=== PATIENT | male | born 1945 | race Caucasian/White ===

== ENCOUNTER 2021-04-20 18:47 | Emergency (ER) | payer BC, MEDICARE ==
[2021-04-20 19:01] VITALS: BP 147/96
[2021-04-20] MEDS ORDERED: BUFFERED LIDOCAINE 10 ML SYRINGE SUBQ STA (19:21)
[2021-04-20] MEDS ORDERED: BACITRACIN ZINC OINT 1 PACKET TOP STA (19:22)
--- NOTE | 2021-04-20 19:39 | ED Physician Documentation ---
History of Present Illness - Stated complaint Stated Complaint: HEAD LAC - Chief complaint Chief Complaint: Laceration - Additonal information Additional information: 76-year-old male presents emergency department for evaluation of a 1.5 cm l aceration above her left eyebrow sustained when he accidentally hit his head on the open car door when working in the garage in the dark. No loss of consciousness. Not anticoagulated. Last tetanus within 5 years Review of Systems Constitutional: reports: Reviewed and negative Nose: reports: Reviewed and negative Throat: reports: Reviewed and negative Cardiac: reports: Reviewed and negative Skin: reports: Laceration (s) PD PAST MEDICAL HISTORY - Past Medical History Past Medical History: Yes Cardiovascular: Hypertension Respiratory: Asthma Endocrine/Autoimmune: HyPOthyroidism : Benign prostate hypertrophy - Past Surgical History Past Surgical History: Yes - Present Medications Home Medications: Ambulatory Orders Medication Instructions Recorded Confirmed Amlodipine Besylate 2.5 mg PO DAILY 04/05/13 04/20/21 Levothyroxine [Synthroid] 112 mcg PO QDAC 10/29/14 04/20/21 Albuterol Sulf [Ventolin Hfa 1 puffs INH DAILY PRN 04/20/21 04/20/21 Inhaler] Atorvastatin [Lipitor] 10 mg PO DAILY 04/20/21 04/20/21 - Allergies Allergies/Adverse Reactions: Allergies Allergy/AdvReac Type Severity Reaction Status Date / Time cephalexin [Cephalexin] Allergy Itching Verified 04/20/21 18:51 Sulfa (Sulfonamide Allergy Rash Verified 04/20/21 18:51 Antibiotics) - Social History Does the pt smoke?: Yes Smoking Status: Current every day smoker Does the pt drink ETOH?: No Does the pt have substance abuse?: No - Immunizations Immunizations are current?: Yes Immunizations: TDAP >10years/unknown - POLST Patient has POLST: No PD ED PE EXPANDED - HEENT HEENT: Other (1.5 cm vertical laceration just above the left medial eyebrow). No: Atraumatic Results - Vitals Vitals: Vital Signs - 24 hr 04/20/21 18:54 Temperature 37.0 C Heart Rate 54 L Respiratory 18 Rate Blood Pressure 147/96 H O2 Saturation 99 Oxygen O2 Source Room air Procedures - Laceration (location) Eyebrow left Length in cm: 1.5 Wound type: Linear, Into subcut fat Neurovascular status: Sensory intact Anesthesia: Lidocaine 1% Wound preparation: Chlorhexadine, Irrigated copiously NS Skin layer closure: Interrupted, Size #-0 - enter number (4), Sutures - enter # (4) Other: Patient tolerated well, No complications, Tetanus UTD PD MEDICAL DECISION MAKING - ED course Complexity details: reviewed results, re-evaluated patient, d/w patient ED course: 76-year-old male with a laceration above his left medial eyebrow. I offered the option of glue versus Suture and the patient requested his sutures he feels it would heal quicker. 4 sutures were placed. Routine wound care and emergent return precautions discussed. Tetanus is up-to-date Departure - Departure Disposition: 01 Home, Self Care Clinical Impression: Laceration of left eyebrow Qualifiers: Encounter type: initial encounter Qualified Code(s): S01.112A - Laceration without foreign body of left eyelid and periocular area, initial encounter Condition: Stable Record reviewed to determine appropriate education?: Yes Instructions: ED Laceration All Comments: Aron it was a pleasure meeting you today. Your suture(s) should be removed in 5-7 days. In 24 hours you may remove the dressing wash gently with warm soap and water, apply any antibiotic ointment and a simple bandage. Your tetanus is up-to-date. Please attempt to keep your wound clean and dry. Return to the emergency department if you have any concerns of infection such as redness, fevers milky drainage increased pain.
== END 2021-04-20 19:45 | disposition home or self-care (01) ==
LOC: ED 18:47
DX: S01.112A Laceration without foreign body of left eyelid and periocular area, initial encounter (principal); W22.8XXA Striking against or struck by other objects, initial encounter; Y93.89 Activity, other specified; Y92.008 Other place in unspecified non-institutional (private) residence as the place of occurrence of the external cause; I10 Essential (primary) hypertension; F17.200 Nicotine dependence, unspecified, uncomplicated
CPT/HCPCS: 12011; 99281; A9270

== ENCOUNTER 2021-08-13 05:27 | Outpatient (CLI) | payer MEDICARE | END 2021-08-13 05:28 | disposition critical access hospital (66) | LOC: EMS 05:27 | DX: R07.9 Chest pain, unspecified (principal); R00.2 Palpitations; R10.13 Epigastric pain | CPT/HCPCS: A0425; A0427 ==

== ENCOUNTER 2021-08-13 06:11 | Emergency (ER) | payer MEDICARE ==
--- NOTE | 2021-08-13 06:30 | ED Physician Documentation ---
PD HPI CHEST PAIN - Stated complaint Stated Complaint: CP - Chief complaint Chief Complaint: Cardiac - History obtained from History obtained from: Patient - History of Present Illness Timing - onset: Enter time (399), Today Timing - onset during: Sleep Timing - duration: Minutes (20) Timing - details: Abrupt onset, Now resolved Pain level max: 8 Pain level now: 0 Quality: Pressure, Throbbing Location: Substernal, Left chest Radiation: Neck Improved by: Rest Associated symptoms: Palpitations. No: Shortness of air, Diaphoresis, Nausea, Vomiting, Feeling faint / dizzy, General Weakness, Cough Similar symptoms before: Has not had sx before Recently seen: Not recently seen - Additional information Additional information: 76-year-old male with a history of hypertension was asleep this morning having a dream when he awoke from the dream he felt his heart thumping quite hard and radiating into his neck. This lasted approximately 20 minutes. Patient eventually called the ambulance. He has had resolution of his symptoms. He has not had the symptoms specifically previously. He has had some chest pain he has been evaluated by [facility] 1 point but has not had a stress test. He does have a family history of coronary disease. Review of Systems Constitutional: denies: Fever Ears: denies: Loss of hearing, Ear pain Nose: denies: Congestion Throat: denies: Sore throat Cardiac: reports: Chest pain / pressure, Palpitations. denies: Pedal edema, Calf pain Respiratory: denies: Dyspnea, Cough GI: denies: Vomiting, Diarrhea : denies: Dysuria, Frequency PD PAST MEDICAL HISTORY - Past Medical History Past Medical History: Yes Cardiovascular: Hypertension Respiratory: Asthma Endocrine/Autoimmune: HyPOthyroidism : Benign prostate hypertrophy - Past Surgical History Past Surgical History: Yes - Present Medications Home Medications: Ambulatory Orders Medication Instructions Recorded Confirmed Amlodipine Besylate 2.5 mg PO DAILY 04/05/13 04/20/21 Levothyroxine [Synthroid] 112 mcg PO QDAC 10/29/14 04/20/21 Albuterol Sulf [Ventolin Hfa 1 puffs INH DAILY PRN 04/20/21 04/20/21 Inhaler] Atorvastatin [Lipitor] 10 mg PO DAILY 04/20/21 04/20/21 - Allergies Allergies/Adverse Reactions: Allergies Allergy/AdvReac Type Severity Reaction Status Date / Time cephalexin [Cephalexin] Allergy Itching Verified 08/13/21 06:21 Sulfa (Sulfonamide Allergy Rash Verified 08/13/21 06:21 Antibiotics) - Social History Does the pt smoke?: Yes Smoking Status: Current every day smoker Does the pt drink ETOH?: No Does the pt have substance abuse?: No - Immunizations Immunizations are current?: Yes Immunizations: TDAP >10years/unknown - POLST Patient has POLST: No PD ED PE NORMAL - Vitals Vital signs reviewed: Yes (hypertensive ) - General General: No acute distress, Well developed/nourished - HEENT HEENT: Atraumatic, PERRL, EOMI - Neck Neck: Supple, no meningeal sign, No bony TTP - Cardiac Cardiac: RRR, No murmur - Respiratory Respiratory: No respiratory distress, Clear bilaterally - Abdomen Abdomen: Soft, Non tender - Back Back: No CVA TTP, No spinal TTP - Derm Derm: Normal color, Warm and dry, No rash - Extremities Extremities: No deformity, No edema - Neuro Neuro: Alert and oriented X 3, 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 ) Computer interpretation: Agree with computer - Labs Labs: Laboratory Tests 08/13/21 08/13/21 08/13/21 06:36 06:36 06:36 WBC 5.3 RBC 5.24 Hgb 15.6 Hct 48.5 MCV 92.6 MCH 29.8 MCHC 32.2 RDW 13.4 Plt Count 276 MPV 8.5 Neut # (Auto) 2.6 Lymph # (Auto) 1.9 Stokes # (Auto) 0.5 Eos # (Auto) 0.3 Baso # (Auto) 0.1 Absolute Nucleated RBC 0.00 Nucleated RBC % 0.0 D-Dimer Sodium 140 Potassium 4.1 Chloride 104 Carbon Dioxide 27 Anion Gap 9.0 BUN 18 Creatinine 1.0 Estimated GFR (MDRD) 73 L Glucose 99 Calcium 9.8 Total Bilirubin 0.9 AST 23 ALT 18 Alkaline Phosphatase 61 Troponin I High Sens 8.1 Total Protein 6.5 L Albumin 3.8 Globulin 2.7 Albumin/Globulin Ratio 1.4 Lipase 33 08/13/21 06:46 WBC RBC Hgb Hct MCV MCH MCHC RDW Plt Count MPV Neut # (Auto) Lymph # (Auto) Stokes # (Auto) Eos # (Auto) Baso # (Auto) Absolute Nucleated RBC Nucleated RBC % D-Dimer 204.6 Sodium Potassium Chloride Carbon Dioxide Anion Gap BUN Creatinine Estimated GFR (MDRD) Glucose Calcium Total Bilirubin AST ALT Alkaline Phosphatase Troponin I High Sens Total Protein Albumin Globulin Albumin/Globulin Ratio Lipase - Rads (name of study) chest Radiology: Prelim report reviewed (Impression: 1. There is no active disease in the chest.), EMP read indepedently, See rad report PD MEDICAL DECISION MAKING - ED course Complexity details: reviewed old records, reviewed results, re-evaluated patient, considered differential, d/w patient ED course: 76 y/o male with thumping heart pain has an EKG that is unchanged but concerning for the ST elevation in V1 and V2. Trop is pending. blood pressure is elevated. The patient's troponin is normal chest x-ray is normal blood work is normal symptoms are resolved. The patient's description of his chest pain sounds like he may have had anxiety with pounding in his chest when he awoke from a dream. The patient acknowledges this. A repeat troponin is pending and at shift change care is turned over to Dr. Andrews pending results. Departure - Departure Clinical Impression: Atypical chest pain Condition: Stable Instructions: ED Chest Pain Atypical Unkn Cause Follow-Up: Ophelia Stevenson MD [Primary Care Provider] - Comments: Aron today we did not find evidence for heart attack with this episode of chest pain/chest thumping. Your blood pressure was elevated and I suspect this is all anxiety related and possibly to the dreams. You have a follow up with your primary care doctor is indicated for a exercise treadmill test.
[2021-08-13 06:44] LABS: BASOPHILS # (AUTO) 0.1 10^3/uL (0.0-0.1); BASOPHILS % (AUTO) 1.9 %; EOSINOPHILS # (AUTO) 0.3 10^3/uL (0.0-0.7); EOSINOPHILS % (AUTO) 5.7 %; HCT - HEMATOCRIT 48.5 % (42.0-52.0); HGB - HEMOGLOBIN 15.6 g/dL (14.0-18.0); LYMPHOCYTES # (AUTO) 1.9 10^3/uL (1.5-3.5); MEAN CORPUSCULAR HEMOGLOBIN 29.8 pg (27.0-31.0); MEAN CORPUSCULAR HGB CONC 32.2 g/dL (32.0-36.0); MEAN CORPUSCULAR VOLUME 92.6 fL (80.0-94.0); MEAN PLATELET VOLUME 8.5 fL (7.4-11.4); MONOCYTES # (AUTO) 0.5 10^3/uL (0.0-1.0); MONOCYTES % (AUTO) 8.7 %; NEUTROPHILS # (AUTO) 2.6 10^3/uL (1.5-6.6); NEUTROPHILS % (AUTO) 48.5 %; PLT - PLATELET COUNT 276 10^3/uL (130-450); RED BLOOD COUNT 5.24 10^6/uL (4.70-6.10); RED CELL DISTRIBUTION WIDTH 13.4 % (12.0-15.0); WHITE BLOOD COUNT 5.3 x10^3/uL (4.8-10.8)
[2021-08-13 06:55] LABS: ALBUMIN 3.8 g/dL (3.2-5.5); ALBUMIN/GLOBULIN RATIO 1.4 (1.0-2.2); BILIRUBIN,TOTAL 0.9 mg/dL (0.2-1.0); CALCIUM 9.8 mg/dL (8.5-10.3); POTASSIUM 4.1 mmol/L (3.5-5.0); TOTAL PROTEIN 6.5 g/dL (6.7-8.2)
--- NOTE | 2021-08-13 08:16 | XRAY Report ---
PROCEDURE: Chest 1 View X-Ray INDICATIONS: chest pain TECHNIQUE: One view of the chest was acquired. COMPARISON: . FINDINGS: Surgical changes and devices: None. Lungs and pleura: No pleural effusions or pneumothorax. No acute lung opacities. Linear opacity in l eft lung base stable compared prior examination likely represents parenchymal scarring. Mediastinum: Mediastinal contours appear normal. Heart size is normal. Bones and chest wall: No suspicious bony lesions. Overlying soft tissues appear unremarkable. IMPRESSION: No acute cardiopulmonary disease process. Reviewed by: Fidelina Morrow MD, PhD on 08/13/2021 8:15 AM PDT Approved by: Fidelina Morrow MD, PhD on 08/13/2021 8:15 AM PDT Station ID: [id number]
[2021-08-13 09:31] VITALS: BP 144/88
--- NOTE | 2021-08-18 11:13 | ED Physician Documentation ---
ED Addendum - Addendum Addendum: 08/18/21 11:12 Repeat troponin is still normal. I advised patient of this. He will be discharged home per plan of Dr. Dickey. Disposition: discharged ruthie in stable condition. Diagnosis: Chest pain uncertain etiology.
== END 2021-08-13 09:40 | disposition home or self-care (01) ==
LOC: EDUNIT# → ED 06:11
DX: R07.89 Other chest pain (principal); I10 Essential (primary) hypertension; F17.200 Nicotine dependence, unspecified, uncomplicated
CPT/HCPCS: 36415; 80053; 83690; 84484; 85025; 85379; 93005; 99284

== ENCOUNTER 2021-11-27 12:49 | Outpatient (CLI) | payer MEDICARE ==
[2021-11-27 19:58] LABS: ALBUMIN/GLOBULIN RATIO 1.4 (1.0-2.2); BILIRUBIN,TOTAL 0.9 mg/dL (0.2-1.0); CALCIUM 9.7 mg/dL (8.5-10.3); CREATININE 0.9 mg/dL (0.6-1.2); POTASSIUM 4.1 mmol/L (3.5-5.0); TOTAL PROTEIN 6.9 g/dL (6.7-8.2)
== END 2021-11-27 12:50 | disposition home or self-care (01) ==
LOC: LAB.S 12:49
PROVIDERS: ATTEND Nurse Practitioner
DX: I48.0 Paroxysmal atrial fibrillation (principal)
CPT/HCPCS: 36415; 80053

== ENCOUNTER → 2022-08-06 | Outpatient (CLI) | payer MEDICARE | END | disposition short-term general hospital (02) | LOC: EMS 05:40 | DX: R07.89 Other chest pain (principal); I48.91 Unspecified atrial fibrillation; R06.02 Shortness of breath; R42 Dizziness and giddiness; R53.1 Weakness | CPT/HCPCS: A0425; A0427 ==